=== PATIENT | male | born 1990 | race Caucasian/White ===

== ENCOUNTER 2018-06-14 15:18 | Emergency (ER) | payer SELFPAY ==
[~2018-06-14] VITALS: Ht 172.7 cm; Wt 84.0 kg
[2018-06-14 16:02] LABS: BASOPHILS # (AUTO) 0.05 x10^3/uL (0-0.1); BASOPHILS % (AUTO) 0 % (0-1); EOSINOPHILS # (AUTO) 0.01 x10^3/uL (0-0.4); EOSINOPHILS % (AUTO) 0 % (1-7); LYMPHOCYTES # (AUTO) 2.34 x10^3/uL (1-3.4); LYMPHOCYTES % (AUTO) 16 % (22-44); MD NO; MEAN CORPUSCULAR HEMOGLOBIN 30.2 pg (27.5-34.5); MEAN CORPUSCULAR HGB CONC 33.8 g/dL (33.2-36.2); MEAN CORPUSCULAR VOLUME 89.4 fL (81-97); MEAN PLATELET VOLUME 10.8 fL (7.4-10.4); MONOCYTES # (AUTO) 0.88 x10^3/uL (0.2-0.8); MONOCYTES % (AUTO) 6 % (2-9); NEUTROPHILS # (AUTO) 11.08 x10^3/uL (1.8-6.8); NEUTROPHILS % (AUTO) 77 % (42-75); PLATELET COUNT 258 x10^3/uL (130-400); RED BLOOD COUNT 5.71 x10^6/uL (4.38-5.82); RED CELL DISTRIBUTION WIDTH 13.4 % (9.4-14.8)
--- NOTE | 2018-06-14 16:05 | NUR ---
TO ROOM FROM LOBBY. NAD.
[2018-06-14 16:10] LABS: ALBUMIN 4.8 g/dL (3.4-5.0); ANION GAP 8 mmol/L (5-15); CALCIUM 9.8 mg/dL (8.5-10.1); CHLORIDE 104 mmol/L (98-107); CREATININE 1.04 mg/dL (0.7-1.3)
--- NOTE | 2018-06-14 16:17 | NUR ---
PT ARRIVES TO ED WITH RIGHT SIDED DENTAL PAIN X 2 WEEKS. PT WAS WAITING IN BETWEEN PAYCHECKS TO SEE DENTIST BUT THE PAIN GOT VERY BAD. PT HAS MODERATE RIGHT SIDED FACIAL SWELLING WITH REDNESS THAT THE PT REPORTS NOT BEING THERE NORMALLY. PT HAS TOOTH DECAY FROM THE CENTRAL INCISOR TO THE 1ST MOLAR ON THE RIGHT SIDE. PT REPORTS HE IS MEDICALLY HEALTHY OTHERWISE.
[2018-06-14 17:11] VITALS: BP 128/84
[2018-06-14] MEDS ORDERED: LIDOCAINE-MPF 1%, 5ML ONE (17:13)
[2018-06-14] MEDS ORDERED: CEFTRIAXONE 1,000 MG ONE (17:13)
--- NOTE | 2018-06-14 17:21 | NUR ---
PT MEDICATED PER EMAR. LIDOCAINE USED TO RECONSTITUTE MEDICATION.
--- NOTE | 2018-06-14 17:23 | NUR ---
Patient/Caregiver given discharge instructions and they have confirmed that they understand the instructions. Patient ambulatory with steady gait.
[2018-06-14] MEDS ORDERED: CEFTRIAXONE 1,000 MG IM ONE (17:30)
[2018-06-14] MEDS ORDERED: IBUPROFEN 800 MG TABLET ONE (17:45)
--- NOTE | 2018-06-14 17:52 | NUR ---
Patient given discharge instructions and they have confirmed that they understand the instructions. Patient ambulatory with steady gait.
[2018-06-14] MEDS ORDERED: IBUPROFEN 800 MG TABLET PO ONE (18:00)
== END 2018-06-14 17:55 | disposition home or self-care (01) ==
LOC: ED 17:25
DX: K08.89 Other specified disorders of teeth and supporting structures (principal); F17.200 Nicotine dependence, unspecified, uncomplicated
CPT/HCPCS: 36415; 80048; 82040; 85025; 96372; 99283; J0696